=== PATIENT | male | born 1955 | race Caucasian/White ===

== ENCOUNTER → 2024-04-06 09:39 | Outpatient (REF) | payer BC, SELFPAY ==
[2024-04-06 11:25] LABS: Depakane 61.2 ug/ml (50.0-120.0)
[2024-04-06 11:53] LABS: Glycohemoglobin (HgbA1c) 5.7 % (4.0-5.6)
[2024-04-06 11:59] LABS: ALT (SGPT) 18 U/L (0-50); AST (SGOT) 20 U/L (17-59); Albumin 4.2 g/dl (3.5-5.0); Alkaline Phosphatase 95 U/L (38-126); Blood Urea Nitrogen 48 mg/dl (9-20); Calcium 9.5 mg/dl (8.4-10.2); Carbon Dioxide 23 mmol/L (22-30); Chloride 110 mmol/L (98-107); Glucose 102 mg/dl (70-99); HDL Cholesterol 33 mg/dl; LDL Cholesterol, Calculated 100 mg/dl; Potassium 5.1 mmol/L (3.5-5.1); Sodium 142 mmol/L (135-145); Total Bilirubin 0.4 mg/dl (0.2-1.3); Total Cholesterol 168 mg/dl (50-199); Total Protein 6.4 g/dl (6.3-8.2); Triglyceride 179 mg/dl (10-149); Uric Acid 3.4 mg/dl (3.5-8.5); Very Low Density Lipoprotein 35 mg/dl (0-30); eGFR 28.67
[2024-04-06 12:24] LABS: TSH 0.61 uIU/ml (0.47-4.68)
[2024-04-06 12:47] LABS: Protein/creatinine Ratio 1.6; Urine Protein 95 mg/dl
[2024-04-06 13:24] LABS: Microalbumin, Random Urine 40.4 mg/dl (0.6-1.7); Microalbumin/creatinine Ratio 663.4 mg/g
== END ==
LOC: HWLAB 09:39
PROVIDERS: ATTENDING PHYSICIAN Specialist; FAMILY PHYSICIAN Family Medicine
DX: E11.69 Type 2 diabetes mellitus with other specified complication (principal); E11.22 Type 2 diabetes mellitus with diabetic chronic kidney disease; N18.32 Chronic kidney disease, stage 3b; E78.5 Hyperlipidemia, unspecified; I10 Essential (primary) hypertension; F31.9 Bipolar disorder, unspecified; G47.33 Obstructive sleep apnea (adult) (pediatric); Z99.89 Dependence on other enabling machines and devices; M10.9 Gout, unspecified
CPT/HCPCS: 36415; 80053; 80061; 80164; 82043; 82570; 83036; 84156; 84443; 84550

== ENCOUNTER → 2024-05-02 12:52 | Outpatient (REF) | payer BC, SELFPAY ==
[2024-05-02 15:11] LABS: Blood Urea Nitrogen 60 mg/dl (9-20); Calcium 9.5 mg/dl (8.4-10.2); Carbon Dioxide 23 mmol/L (22-30); Chloride 111 mmol/L (98-107); Glucose 83 mg/dl (70-99); Potassium 5.1 mmol/L (3.5-5.1); Sodium 142 mmol/L (135-145); eGFR 23.83
== END ==
LOC: HWLAB 12:52
PROVIDERS: ATTENDING PHYSICIAN Specialist; FAMILY PHYSICIAN Family Medicine
DX: R80.9 Proteinuria, unspecified (principal); E11.29 Type 2 diabetes mellitus with other diabetic kidney complication; N18.32 Chronic kidney disease, stage 3b
CPT/HCPCS: 36415; 80048

== ENCOUNTER → 2024-05-12 16:17 | Outpatient (REF) | payer BC, SELFPAY ==
[2024-05-12 17:00] LABS: Blood Urea Nitrogen 55 mg/dl (9-20); Calcium 9.7 mg/dl (8.4-10.2); Carbon Dioxide 22 mmol/L (22-30); Glucose 119 mg/dl (70-99); eGFR 22.85
[2024-05-12 17:18] LABS: Chloride 110 mmol/L (98-107); Potassium 5.9 mmol/L (3.5-5.1); Sodium 141 mmol/L (135-145)
== END ==
LOC: REG 16:17
PROVIDERS: ATTENDING PHYSICIAN Specialist; FAMILY PHYSICIAN Family Medicine
DX: R80.9 Proteinuria, unspecified (principal); N18.32 Chronic kidney disease, stage 3b; I10 Essential (primary) hypertension; E11.29 Type 2 diabetes mellitus with other diabetic kidney complication
CPT/HCPCS: 36415; 80048

== ENCOUNTER → 2024-06-02 15:25 | Outpatient (REF) | payer BC, SELFPAY ==
[2024-06-02 16:28] LABS: Blood Urea Nitrogen 49 mg/dl (9-20); Calcium 9.7 mg/dl (8.4-10.2); Carbon Dioxide 22 mmol/L (22-30); Chloride 110 mmol/L (98-107); Glucose 91 mg/dl (70-99); Potassium 5.4 mmol/L (3.5-5.1); Sodium 142 mmol/L (135-145); eGFR 26.05
== END ==
LOC: REG 15:25
PROVIDERS: ATTENDING PHYSICIAN Specialist; FAMILY PHYSICIAN Family Medicine
DX: N18.32 Chronic kidney disease, stage 3b (principal); E11.29 Type 2 diabetes mellitus with other diabetic kidney complication; I10 Essential (primary) hypertension
CPT/HCPCS: 36415; 80048

== ENCOUNTER → 2024-08-14 06:18 | Day surgery (SDC) | payer BC, SELFPAY ==
[2024-08-14 07:47] LABS: Glucose - Point of Care 80 mg/dl (70-99)
== END ==
LOC: GI 06:18
PROVIDERS: ATTENDING PHYSICIAN Internal Medicine; FAMILY PHYSICIAN Family Medicine
DX: Z12.11 Encounter for screening for malignant neoplasm of colon (principal); D12.2 Benign neoplasm of ascending colon; K63.5 Polyp of colon; K57.30 Diverticulosis of large intestine without perforation or abscess without bleeding; K64.8 Other hemorrhoids; Z86.010 Personal history of colon polyps
CPT/HCPCS: 45385; 45380; 88305; 82962

== ENCOUNTER → 2025-11-12 12:53 | Outpatient (REF) | payer BC, SELFPAY | LOC: HWRCS 12:53 | PROVIDERS: ATTENDING PHYSICIAN Transplant Surgery; FAMILY PHYSICIAN Family Medicine | DX: Z01.818 Encounter for other preprocedural examination (principal); N18.6 End stage renal disease | CPT/HCPCS: 71048; 74176; 93005; 93306 ==